=== PATIENT | male | born 1955 | race Caucasian/White ===

== ENCOUNTER 2024-05-06 21:36 | Emergency (ER) | payer BC ==
[2024-05-06] MEDS ORDERED: Sodium Chloride 0.9% 10 ML Syringe FLUSH PRN (21:44)
[2024-05-06] MEDS ORDERED: Sodium Chloride 0.9% 2.5 ML Syringe FLUSH PRN (21:44)
[2024-05-06] MEDS: cefTRIAXone 1 GM Vial IV ONE (22:01)
[2024-05-06] MEDS: cefTRIAXone 2 GM in Sodium Chloride 0.9% 50 ML IV ONE (22:05)
[2024-05-06] MEDS: Sodium Chloride 0.9% 1,000 ML IV ONE (22:05)
[2024-05-06 22:15] LABS: BASOPHILS ABSOLUTE AUTO 0.03 K/uL (0.00-0.20); BASOPHILS PERCENT AUTO 0.2 % (0.0-1.0); EOSINOPHILS ABSOLUTE AUTO 0.01 K/uL (0.00-0.45); EOSINOPHILS PERCENT AUTO 0.1 % (0.0-6.0); HEMATOCRIT 35.9 % (42.0-52.0); HEMOGLOBIN 11.5 g/dL (14.0-18.0); IMMATURE GRAN ABSOLUTE AUTO 0.07 K/uL (0.00-0.05); IMMATURE GRAN PERCENT AUTO 0.4 % (0.0-0.4); LYMPHOCYTES ABSOLUTE AUTO 1.17 K/uL (1.00-4.80); LYMPHOCYTES PERCENT AUTO 6.4 % (24.0-44.0); MEAN CORPUSCULAR HEMOGLOBIN 22.7 pg (28.0-32.0); MEAN CORPUSCULAR VOLUME 70.8 fL (83.0-99.0); MEAN PLATELET VOLUME 8.6 fL (9.4-12.4); MONOCYTES ABSOLUTE AUTO 1.39 K/uL (0.00-0.80); MONOCYTES PERCENT AUTO 7.6 % (0.0-8.0); NEUTROPHILS ABSOLUTE AUTO 15.65 K/uL (1.80-7.70); NEUTROPHILS PERCENT AUTO 85.3 % (41.0-71.0); PLATELET COUNT,PLT 385 K/uL (150-400); RED BLOOD CELL COUNT 5.07 M/uL (4.52-5.90); WHITE BLOOD CELL COUNT,WBC 18.32 K/uL (3.9-11.3)
[2024-05-06 22:43] LABS: LACTIC ACID 2.3 mmol/L (0.4-2.0)
[2024-05-06 22:47] LABS: A/G RATIO 0.6 (0.9-1.6); ALBUMIN 2.6 g/dL (3.4-5.0); BILIRUBIN TOTAL 0.7 mg/dL (0.2-1.0); CALCIUM 8.6 mg/dL (8.5-10.1); CARBON DIOXIDE,CO2 24.4 mmol/L (21.0-32.0); CREATININE 1.7 mg/dL (0.8-1.3); EST CRCL DRUG DOSING (CG) 37.01 mL/min; POTASSIUM,K 4.2 mmol/L (3.5-5.1); PROTEIN TOTAL,TP 6.9 g/dL (6.4-8.2)
[2024-05-06] MEDS: Iopamidol 755 MG/ML 500 ML Multipack Bottle IVPUSH ONE (23:39)
[2024-05-07 00:57] LABS: APPEARANCE,URINE CLEAR; BILIRUBIN,URINE NEGATIVE (NEGATIVE); COLOR,URINE YELLOW; GLUCOSE,URINE NEGATIVE (NEGATIVE); KETONES,URINE NEGATIVE (NEGATIVE); LEUKOCYTE ESTERASE,URINE NEGATIVE (NEGATIVE); NITRITE,URINE NEGATIVE (NEGATIVE); OCCULT BLOOD,URINE TRACE-INTACT (NEGATIVE); PH,URINE 5.5 (5.0-8.0); PROTEIN,URINE NEGATIVE (NEGATIVE); UROBILINOGEN,URINE 0.2 EU/dL (<2.0)
[2024-05-07 01:10] LABS: BACTERIA,URINE FEW (NEGATIVE); EPITHELIAL CELLS,URINE NOT SEEN (NONE-FEW); MUCUS,URINE LIGHT (NONE-MOD); WBC,URINE 0-2 (0-5/HPF)
[2024-05-07] MEDS: Sodium Chloride 0.9% 1,000 ML IV SCH (02:02)
[2024-05-07] MEDS: metroNIDAZOLE/Normal Saline 500 MG in Premix Bag 1 BAG IV ONE (02:02)
[2024-05-07] MEDS: Ciprofloxacin in D5W 400 MG in Premix Bag 1 BAG IV STA (02:02)
[2024-05-07] MEDS: Sodium Chloride 0.9% 1,000 ML IV ONE (08:40)
== END 2024-05-07 09:55 ==
LOC: MW.ED 21:36
DX: K57.20 Diverticulitis of large intestine with perforation and abscess without bleeding (principal); Z88.0 Allergy status to penicillin; Z79.899 Other long term (current) drug therapy
CPT/HCPCS: 36415; 71045; 71275; 74177; 80053; 81001; 83605; 83880; 84145; 84484; 85025; 85379; 87040; 93005; 96361; 96365; 96366; 96367; 96368; 99285; J0457; J0696; J0744; J1836; J7030; Q9967; 93010

== ENCOUNTER 2024-07-26 17:09 | Emergency (ER) | payer BC ==
[2024-07-26] MEDS ORDERED: Sodium Chloride 0.9% 2.5 ML Syringe FLUSH PRN (19:06)
[2024-07-26] MEDS ORDERED: Sodium Chloride 0.9% 20 ML SDV IV PRN (19:06)
[2024-07-26] MEDS ORDERED: Sodium Chloride 0.9% 10 ML Syringe FLUSH PRN (19:06)
[2024-07-26 19:23] LABS: HEMATOCRIT 42.3 % (42.0-52.0); HEMOGLOBIN 13.5 g/dL (14.0-18.0); MEAN CORPUSCULAR HEMOGLOBIN 26.6 pg (28.0-32.0); MEAN CORPUSCULAR HGB CONC 31.9 g/dL (32.0-36.0); MEAN CORPUSCULAR VOLUME 83.3 fL (83.0-99.0); MEAN PLATELET VOLUME 8.9 fL (9.4-12.4); PLATELET COUNT,PLT 258 K/uL (150-400); RED BLOOD CELL COUNT 5.08 M/uL (4.52-5.90); WHITE BLOOD CELL COUNT,WBC 8.95 K/uL (3.9-11.3)
[2024-07-26 19:50] LABS: A/G RATIO 0.8 (0.9-1.6); ALBUMIN 2.8 g/dL (3.4-5.0); BILIRUBIN TOTAL 0.3 mg/dL (0.2-1.0); CALCIUM 8.5 mg/dL (8.5-10.1); CARBON DIOXIDE,CO2 27.9 mmol/L (21.0-32.0); CREATININE 1.2 mg/dL (0.8-1.3); EST CRCL DRUG DOSING (CG) 52.43 mL/min; POTASSIUM,K 4.4 mmol/L (3.5-5.1); PROTEIN TOTAL,TP 6.3 g/dL (6.4-8.2)
[2024-07-26 19:51] LABS: APPEARANCE,URINE CLEAR; BILIRUBIN,URINE NEGATIVE (NEGATIVE); COLOR,URINE YELLOW; GLUCOSE,URINE NEGATIVE (NEGATIVE); KETONES,URINE NEGATIVE (NEGATIVE); LEUKOCYTE ESTERASE,URINE NEGATIVE (NEGATIVE); NITRITE,URINE NEGATIVE (NEGATIVE); OCCULT BLOOD,URINE NEGATIVE (NEGATIVE); PH,URINE 6.5 (5.0-8.0); PROTEIN,URINE NEGATIVE (NEGATIVE); UROBILINOGEN,URINE 0.2 EU/dL (<2.0)
[2024-07-26] MEDS: Iopamidol 755 MG/ML 500 ML Multipack Bottle IVPUSH ONE (20:09)
[2024-07-26 20:16] LABS: BASOPHILS ABSOLUTE MAN 0.09 K/uL (0.00-0.20); BASOPHILS PERCENT MAN 1 % (0-1); EOSINOPHILS ABSOLUTE MAN 0.09 K/uL (0.00-0.45); EOSINOPHILS PERCENT MAN 1 % (0-6); LYMPHOCYTES ABSOLUTE MAN 0.72 K/uL (1.00-4.80); LYMPHOCYTES PERCENT MAN 8 % (24-44); MONOCYTES ABSOLUTE MAN 0.63 K/uL (0.00-0.80); MONOCYTES PERCENT MAN 7 % (0-8); SEG NEUTROPHILS ABSOLUTE MAN 7.43 K/uL (1.80-7.70); SEG NEUTROPHILS PERCENT MAN 83 % (41-71)
[2024-07-26] MEDS: metroNIDAZOLE 250 MG Tab PO ONE (21:14)
[2024-07-26] MEDS: Ciprofloxacin 500 MG Tab PO ONE (21:32)
== END 2024-07-26 21:32 | disposition home or self-care (01) ==
LOC: MW.ED 17:09
DX: K57.32 Diverticulitis of large intestine without perforation or abscess without bleeding (principal); K63.9 Disease of intestine, unspecified; I10 Essential (primary) hypertension; E78.00 Pure hypercholesterolemia, unspecified; Z88.0 Allergy status to penicillin; Z79.51 Long term (current) use of inhaled steroids; Z79.82 Long term (current) use of aspirin; Z79.899 Other long term (current) drug therapy
CPT/HCPCS: 36415; 71260; 74177; 80053; 81003; 85007; 85027; 99284; A9270; Q9967; 99283